=== PATIENT | male | born 1990 | race Hispanic/Latino ===

== ENCOUNTER → 2025-07-16 08:52 | Outpatient (REF) | payer OTHER, SELFPAY | LOC: MRI 08:52 | PROVIDERS: ATTENDING PHYSICIAN Student in an Organized Health Care Education/Training Program; FAMILY PHYSICIAN General Practice | DX: I69.354 Hemiplegia and hemiparesis following cerebral infarction affecting left non-dominant side (principal) | CPT/HCPCS: 70551 ==

== ENCOUNTER 2025-07-31 19:06 | Emergency (ER) | payer OTHER, SELFPAY ==
[2025-07-31 19:10] VITALS: BP 113/71
[2025-07-31 20:00] VITALS: BP 114/64
[2025-07-31 20:16] LABS: Hematocrit 31.8 % (39.0-52.0); Hemoglobin 11.1 g/dL (13.0-18.0); Mean Corp Hgb Conc. 34.9 g/dL (33.0-37.0); Mean Corpuscular Volume 91.6 fL (80.0-94.0); Nucleated Red Blood Cells % 0 % (-); Platelet Count 143 10^3/uL (130-400); Red Cell Dist. Width 12.3 % (11.5-14.5)
[2025-07-31 20:48] LABS: Blood Urea Nitrogen 16 mg/dl (9-20); Calcium 9.1 mg/dl (8.4-10.2); Carbon Dioxide 30 mmol/L (22-30); Chloride 104 mmol/L (98-107); Glucose 98 mg/dl (70-99); Sodium 135 mmol/L (135-145); eGFR > 60.00
--- NOTE | 2025-07-31 21:55 | ED.GENMED ---
History of Present Illness
General
Chief Complaint: Cough
Time Seen by Provider: 07/31/25 21:25
History of Present Illness
History of Present Illness:
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 Patient reports since July 06
he has been persistently coughing up blood. Does note that the blood is mixed with his mucus, worse in the morning time. [facility] from [facility]. No associated chest pain or difficulty breathing. Denies known history of PE.
Denies abdominal pain or GI symptoms. Denies additional acute medical complaints
Phy Exam
Physical Exam
Physical Exam:
General: Well-appearing, no clinical signs of dehydration, nontoxic and in no acute distress
HEENT: protecting airway
Neck: appears supple
CV: Normal heart rate, regular rhythm
Resp: No accessory muscle use, no increased work of breathing, lungs clear to auscultation bilaterally
Abd: no distension
Extremities: No deformities, no swelling
Neuro: alert, no focal neurologic deficit. Left upper and lower extremity weakness, reported as chronic
: deferred
Rectal: deferred
Psych: Normal affect
Skin: Intact
Course
Orders/Labs/Results
Orders:
Orders
07/31/25 20:10
Basic Metabolic Panel Urgent
Complete Blood Count/With Diff Urgent
07/31/25 21:41
CT Chest PE Study Urgent
Comment:
Reason For Exam: hemoptysis, on eliquis
07/31/25 21:58
Electrocardiogram (*1) Urgent
Reason for Study: Other
Other Reason for Exam: hemoptysis
EKG- Treatment ONCE
07/31/25 22:13
Diphenhydramine [Benadryl] 50 mg IV NOW STA
Hydrocortisone Sod Succinate [Solu-Cortef] 200 mg IV NOW STA
Abnormal Lab Results
07/31/25
20:10
RBC 3.47 L 10^6/uL
(4.70-6.10)
Hgb 11.1 L g/dL
(13.0-18.0)
Hct 31.8 L %
(39.0-52.0)
MCH 32.0 H pg
(27.0-31.0)
MPV 10.8 H fL
(7.4-10.4)
Neutrophils % 38.9 L %
(42.2-75.2)
Monocytes % 10.0 H %
(1.7-9.3)
Eosinophils % 8.3 H %
(0-6)
07/31/25 20:10
07/31/25 20:10
Vital Signs
Initial and Last Documented VS:
Initial Vital Signs
Temp Pulse Resp BP Pulse Ox
97.8 F 70 18 113/71 100
07/31/25 19:10 07/31/25 19:10 07/31/25 19:10 07/31/25 19:10 07/31/25 19:10
Last Documented Vital Signs
Temp Pulse Resp BP Pulse Ox
97.8 F 60 18 114/64 100
07/31/25 19:10 07/31/25 20:00 07/31/25 20:00 07/31/25 20:00 07/31/25 21:58
MDM/Problems Addressed
MDM/Problems Addressed:
35-year-old male with history of stroke on Eliquis and seizure disorder presenting for concern of hemoptysis. Vital signs on arrival are normal.
On exam, patient is resting comfortably, no acute distress, no respiratory distress. No present coughing. Without present concern for respiratory compromise. Suspect bronchial irritation and inflammation as etiology of symptoms. Likely worsened
by patient's anticoagulation status. Labs obtained prior to my assessment, without concerning hemoglobin. Will plan for CT PE for additional evaluation.
22:10 - Alerted by wastewater technician that patient is noting a contrast allergy. Only allergy listed for patient is shellfish. On review of imaging from [facility], has previously had CT abdomen pelvis with contrast on 2 occasions. Without present concern for
severe contrast allergy. Will pretreat with steroids and Benadryl
00:45 - No reaction after IV contrast. Patient does note some pain to his left upper extremity. Will administer Tylenol. No signs of redness or swelling. CT of the chest without acute abnormality. Given hemodynamic stability, advised
continuation of Eliquis and follow-up with medical. Feel stable for discharge. However explained that if this hemoptysis worsens with large volume of usman blood that he should return to the hospital.
*Pulse Oximetry
SaO2: 100
Oxygen Mode of Delivery: Room air
Patient hypoxic: no
*Critical Care Note
Total Time (30-74mins, 75-104mins- exclusive of procedures): Not Applicable
ED Attending Note
-
Portions of this chart may have been created with voice recognition software.� Occasional wrong word or��sound alike� substitutions may have occurred due to the inherent limitations of voice recognition software.
Discharge Plan
Departure
Prescriptions:
No Action
Eliquis 5 mg Tablet
5 mg PO BID
levetiracetam [Keppra] 500 mg Tablet
500 mg PO BID
aspirin [Baby Aspirin] 81 mg Tablet,Chewable
81 mg PO DAILY
atorvastatin 80 mg Tablet
80 mg PO DAILY
albuterol sulfate 2.5 mg /3 mL (0.083 %) Solution For Nebulization
2.5 mg INHALATION Q4H PRN (Reason: asthma)
Referrals:
[facility] [Family Provider, General]
Interventions
Interventions:
*Risk Screen - Suicide Last Done: 07/31/25 19:10
*General Assessment Last Done: 07/31/25 19:10
*Neglect/Abuse Screening Last Done: 07/31/25 19:10
ED- Pulmonary Assessment Last Done: 07/31/25 20:00
Discharge Date and Time
Print Language: [place]
[2025-07-31] MEDS: SOLU-CORTEF 200 MG IV (22:22)
[2025-07-31] MEDS: BENADRYL 50 MG IV (22:22)
[2025-08-01 00:10] VITALS: BP 113/59
[2025-08-01] MEDS: TYLENOL 650 MG PO (01:17)
== END 2025-08-01 01:28 ==
LOC: EMR 19:06
PROVIDERS: EMERGENCY PHYSICIAN Student in an Organized Health Care Education/Training Program
DX: R04.2 Hemoptysis (principal); G40.909 Epilepsy, unspecified, not intractable, without status epilepticus; I69.354 Hemiplegia and hemiparesis following cerebral infarction affecting left non-dominant side; Z79.01 Long term (current) use of anticoagulants; Z79.82 Long term (current) use of aspirin
CPT/HCPCS: 99284; 96374; 96375; 71275; 80048; 85025; 93005; Q9967

== ENCOUNTER 2025-09-24 06:33 | Outpatient (RCR) | payer OTHER, SELFPAY | END 2025-09-25 13:56 | disposition home or self-care (01) | LOC: RPT 06:33 | PROVIDERS: ATTENDING PHYSICIAN Student in an Organized Health Care Education/Training Program | DX: I69.354 Hemiplegia and hemiparesis following cerebral infarction affecting left non-dominant side (principal) | CPT/HCPCS: 97110; 97162 ==